=== PATIENT | female | born 1930 | race Caucasian/White ===

== ENCOUNTER 2016-12-27 03:01 | Emergency (ER) | payer MEDICARE, BC ==
[~2016-12-27] VITALS: Ht 147.3 cm; Wt 61.1 kg
[2016-12-27] MEDS ORDERED: SODIUM CHLORIDE FLUSH 10ML SYR IVF ONE (03:30)
[2016-12-27] MEDS ORDERED: ASPIRIN 81 MG TABLET CHEW PO ONE (03:30)
[2016-12-27] MEDS ORDERED: ASPIRIN 81 MG TABLET CHEW ONE (03:38)
[2016-12-27 04:06] LABS: BLOOD UREA NITROGEN 19 mg/dL (7-18)
[2016-12-27 04:14] LABS: ASPARTATE AMINO TRANSFERASE 20 U/L (15-37)
[2016-12-27 04:28] LABS: IS PT STATUS REG ER OR PRE ER? YES
[2016-12-27 05:02] VITALS: BP 170/64
== END 2016-12-27 05:05 | disposition home or self-care (01) ==
LOC: ED 04:59
DX: R07.89 Other chest pain (principal); M79.602 Pain in left arm; Z88.0 Allergy status to penicillin; Z88.8 Allergy status to other drugs, medicaments and biological substances
CPT/HCPCS: 36415; 71010; 80053; 83880; 84484; 85025; 85610; 85730; 93005; 99285